=== PATIENT | female | born 1945 | race Caucasian/White ===

== ENCOUNTER → 2019-11-24 | Outpatient (POV) | payer MEDICARE, OTHER ==
--- NOTE | 2019-11-25 09:49 | IRPN ---
[facility] IR Progress Note IR Progress Note DATE: Nov 24, 2019 Teleconsult Patient needs possible biopsy and no imaging available. No consult done. Imaging requested from outside for review by our radiologist. This encounter should not be charged. Thank you HINA WEN MD Nov 25, 2019 09:49
== END ==
LOC: M IRPOV 13:17
PROVIDERS: ATTEND Radiology Diagnostic Radiology
DX: Z02.9 Encounter for administrative examinations, unspecified (principal)